=== PATIENT | male | born 1975 | race Caucasian/White ===

== ENCOUNTER 2019-11-24 07:20 | Emergency (ER) | payer OTHER ==
[~2019-11-24] VITALS: Ht 170.2 cm; Wt 108.9 kg
[2019-11-24] MEDS ORDERED: ZESTRIL10 MG PO (07:34)
[2019-11-24] MEDS ORDERED: PERCOCET 5-3251 EACH PO ×2 (08:10→17:21)
[2019-11-24 08:25] VITALS: BP 135/88
== END 2019-11-24 08:25 | disposition home or self-care (01) ==
LOC: M.ERS 07:20
DX: S86.812A Strain of other muscle(s) and tendon(s) at lower leg level, left leg, initial encounter (principal); I10 Essential (primary) hypertension; X50.1XXA Overexertion from prolonged static or awkward postures, initial encounter; Y93.89 Activity, other specified; Y92.89 Other specified places as the place of occurrence of the external cause; Y99.8 Other external cause status